=== PATIENT | male | born 1970 | race Hispanic/Latino ===

== ENCOUNTER → 2019-02-23 | Day surgery (SDC) | payer OTHER ==
[~2019-02-23] MED LIST: ATORVASTATIN CA20 MG PO; FENTANYL CITRATE/PF 100MCG/2 ML INJ ONE; GABAPENTIN300 MG PO; HYOSCYAMINE SULFATE 0.5 MG/ML INJ ONE; JARDIANCE PO; LIDOCAINE HCL 2% LOCAL INJ 5 ML SDV VIAL INJ ONE; METFORMIN HCL500 MG PO; MIDAZOLAM HCL 2 MG/2 ML VIAL ONE; PROPOFOL IV EMULSION 10 MG/ML 50 ML VIAL ONE; SIMETHICONE 40 MG/0.6 ML BTL ONE; UNISOM50 MG PO
[2019-02-23 11:36] LABS: WBC,FECAL (FECAL LACTOFERRIN) POSITIVE (NEGATIVE)
[2019-02-23 12:14] VITALS: BP 135/88
[2019-02-23 13:11] LABS: C DIFFICILE TOXIN A&B AMP PROB NEGATIVE (NEGATIVE)
--- NOTE | 2019-02-23 19:13 | Operative Report ---
DATE OF PROCEDURE: 02/23/2019 SURGEON: Juan Ness MD PROCEDURE: Esophagogastroduodenoscopy with biopsies and colonoscopy with polypectomy and biopsies. INDICATION FOR EGD: Dyspepsia. INDICATIONS FOR COLONOSCOPY: Colorectal cancer screening, diarrhea. MEDICATIONS: The patient was done under MAC, please see anesthesiologist's note. PROCEDURE IN DETAIL: With the patient in left lateral decubitus position, a flexible fiberoptic Olympus gastroscope was introduced into the esophagus without any difficulty. There was some patchy erythema noted in distal esophagus. A short tongue of velvety red mucosa was noted to extend proximally from the GE junction and biopsies were obtained to rule out Montalvo's. The scope was then advanced with ease into the stomach traversing a small sliding hiatal hernia. Mucosa overlying the antrum and the body revealed some patchy erythema and [id number] edema and biopsies were obtained and sent to stain for H pylori. An approximately 1 cm submucosal nodule was noted in the antrum and that was biopsied. The pylorus was of normal contour and shape, was intubated with ease and the scope was advanced all the way to the second portion of the duodenum. The scope was then withdrawn slowly and mucosa overlying the proximal second portion and the duodenal bulb grossly appeared to be within normal limits. Biopsies were obtained to rule out sprue considering the patient's history of chronic diarrhea. The scope was then withdrawn back into the stomach and retroflexed and mucosa overlying the fundus and the cardia appeared to be within normal limits. The scope was then straightened out, it was subsequently withdrawn. The patient tolerated procedure well. IMPRESSION: 1. Mild distal esophagitis. 2. Rule out Montalvo's esophagus. 3. Small sliding hiatal hernia. 4. Gastritis, biopsied, biopsies sent to stain for H pylori. 5. Antral submucosal nodule approximately 1 cm in size, biopsied. 6. Rule out sprue. PLAN: Follow up histology. Initiate Protonix 40 mg one p.o. q.a.m. a.c. PROCEDURE IN DETAIL: The patient was then turned around and after adequate lubrication of the anal canal, a flexible fiberoptic Olympus colonoscope was inserted into the rectum with ease and advanced all the way to the cecum. Mucosa overlying the cecum appeared to be within normal limits. The ileocecal valve was intubated and the scope was advanced into the terminal ileum. Biopsies were obtained. The scope was then withdrawn back into the colon. It was then withdrawn slowly and mucosa overlying the ascending colon and transverse colon grossly appeared to be within normal limits. Some diverticular disease was noted in the descending and the sigmoid colon. Mild patchy inflammatory changes were noted in the descending and the sigmoid and random biopsies were obtained. The scope was then retroflexed into the distal rectum and a minute nodule was noted at the dentate line and that was removed per hot biopsy forceps and small internal hemorrhoids were also noted, none of which was actively bleeding. The scope was then straightened out, it was subsequently withdrawn. The patient tolerated procedure well. IMPRESSION: 1. Diverticulosis. 2. Mild patchy left-sided colitis. 3. Minute nodule dentate line, removed per hot biopsy forceps. 4. Internal hemorrhoids, none actively bleeding. PLAN: Follow up histology. Start Bentyl 10 mg one p.o. t.i.d. and VSL#3 one p.o. daily. The patient might benefit from a followup colonoscopy in 5-10 years. MD ERIN Byrd/POLO /[id number] cc: Shila Gamez MD
== END | disposition home or self-care (01) ==
LOC: OR 07:42
PROVIDERS: ATTEND Internal Medicine Gastroenterology
DX: K29.70 Gastritis, unspecified, without bleeding (principal); K51.50 Left sided colitis without complications; Q27.33 Arteriovenous malformation of digestive system vessel; K63.89 Other specified diseases of intestine; K20.9 Esophagitis, unspecified; K21.9 Gastro-esophageal reflux disease without esophagitis; K44.9 Diaphragmatic hernia without obstruction or gangrene; K31.89 Other diseases of stomach and duodenum; K22.8 Other specified diseases of esophagus; K57.30 Diverticulosis of large intestine without perforation or abscess without bleeding; K64.8 Other hemorrhoids; D72.820 Lymphocytosis (symptomatic); E11.9 Type 2 diabetes mellitus without complications; G47.30 Sleep apnea, unspecified; Z01.810 Encounter for preprocedural cardiovascular examination; Z79.84 Long term (current) use of oral hypoglycemic drugs; Z68.29 Body mass index [BMI] 29.0-29.9, adult
CPT/HCPCS: 36415; 43239; 45380; 82948; 83630; 83993; 87045; 87177; 87328; 87493; 93005; J1980; J2001; J2250; J2704; 45378; 45384

== ENCOUNTER → 2025-07-28 | Day surgery (SDC) | payer BC ==
[~2025-07-28] MED LIST changes: +GLYXAMBI 25 MG1 EACH PO; -HYOSCYAMINE SULFATE 0.5 MG/ML INJ ONE; +LACTATED RINGER'S 1,000 ML ONE; +METOCLOPRAMIDE HCL 10 MG/2ML VIAL ONE; -MIDAZOLAM HCL 2 MG/2 ML VIAL ONE; -PROPOFOL IV EMULSION 10 MG/ML 50 ML VIAL ONE; +PROPOFOL IV EMULSION 50 ML IV ONE; -SIMETHICONE 40 MG/0.6 ML BTL ONE; +TESTOSTERO200 MG/1 M INJ; +TRAZODONE HCL100 MG PO; +ZESTRIL10 MG PO
[2025-07-28] MEDS: ONDANSETRON HCL INJ 2MG/ML 2ML 2 MG/ML VIAL ONE (12:21)
[2025-07-28 12:30] VITALS: BP 141/93; PULSE 66; RESP 16; O2SAT 97
[2025-07-28 12:32] LABS: CDIFF AG QUIK CHEK NEGATIVE (NEGATIVE); CDIFF TOX QUIK CHEK NEGATIVE (NEGATIVE)
[2025-08-01 08:13] LABS: ENDOMYSIAL ANTIBODIES, IGA Negative (Negative)
[2025-08-01 09:37] LABS: TISSUE TRANSGLUTAMINASE IGA AB <2 U/mL (0-3)
== END | disposition home or self-care (01) ==
LOC: OR 07:56
PROVIDERS: ATTEND Internal Medicine Gastroenterology
DX: K29.80 Duodenitis without bleeding (principal); K57.30 Diverticulosis of large intestine without perforation or abscess without bleeding; K64.8 Other hemorrhoids; K62.89 Other specified diseases of anus and rectum; K44.9 Diaphragmatic hernia without obstruction or gangrene; K21.00 Gastro-esophageal reflux disease with esophagitis, without bleeding; K29.70 Gastritis, unspecified, without bleeding; E11.9 Type 2 diabetes mellitus without complications; F41.9 Anxiety disorder, unspecified; E78.00 Pure hypercholesterolemia, unspecified; G47.30 Sleep apnea, unspecified; Z90.49 Acquired absence of other specified parts of digestive tract; Z79.84 Long term (current) use of oral hypoglycemic drugs; Z79.899 Other long term (current) drug therapy; Z79.890 Hormone replacement therapy; Z01.810 Encounter for preprocedural cardiovascular examination
CPT/HCPCS: 36415; 43239; 45380; 82784; 82948; 83516; 83630; 83993; 86256; 87045; 87177; 87324; 87328; 87449; 93005; J2003; J2405; J2470; J2704; J2765; J3010; J7121; 45378